=== PATIENT | male | born 1960 | race Asian ===

== ENCOUNTER 2022-10-24 08:34 | Outpatient (CLI) | payer BC, SELFPAY ==
[2022-10-24 19:48] LABS: Basophils Percent Auto 0.4 % (0.2-1.2); Eosinophils Absolute Auto 0.1 K/mm3 (0-0.3); Eosinophils Percent Auto 1.8 % (0-4.4); Hematocrit 37.2 % (42.0-52.0); Hemoglobin 11.8 g/dL (14.0-18.0); Immature Granulocyte Absolute 0.01 K/mm3 (0.00-0.031); Immature Granulocyte Percent A 0.2 % (0-0.5); Lymphocytes Absolute Auto 1.59 K/mm3 (0.9-3.2); Lymphocytes Percent Auto 35.6 % (18.3-44.2); Mean Corpuscular HGB Conc 31.7 g/dl (32-36); Mean Corpuscular Hemoglobin 32.3 pg (26-34); Mean Corpuscular Volume 101.9 fl (80-100); Monocytes Absolute Auto 0.4 K/mm3 (0.1-0.6); Monocytes Percent Auto 8.5 % (2.6-8.5); Neutrophils Absolute Auto 2.4 K/mm3 (1.3-6.7); Neutrophils Percent Auto 53.5 % (45.5-73.1); Platelet Count Result 249 k/mm3 (150-375); Red Blood Count 3.65 M/mm3 (4.6-6.20); Red Cell Distribution Width 13.9 % (11.5-14.5); White Blood Count 4.5 K/mm3 (4.5-10.0)
[2022-10-24 20:29] LABS: Alanine Aminotransferase 25 U/L (6-50); Alkaline Phosphatase 66 U/L (38-126); Anion Gap 7 mmol/L (8-16); Aspartate Amino Transferase 33 U/L (17-59); Bilirubin,Total 0.5 mg/dL (0.2-1.3); Blood Urea Nitrogen 14 mg/dL (9-20); Calcium 8.7 mg/dL (8.4-10.2); Carbon Dioxide 26 mmol/L (22-30); Chloride 104 mmol/L (98-107); Cholesterol 174 mg/dL (0-200); Estimated Glomerular Filt Rate > 60; Glucose 75 mg/dL (65-110); HDL Direct 47 mg/dL; Magnesium 2.4 mg/dL (1.6-2.3); Potassium 4.1 mmol/L (3.4-5.0); Sodium 137 mmol/L (137-145); Triglycerides 104 mg/dL (<150)
[2022-10-24 20:40] LABS: LDL Cholesterol Direct 84 mg/dL
[2022-10-24 20:58] LABS: Prostate Specific Antigen 5.4 ng/mL (< OR = 4.0)
== END 2022-10-24 08:35 | disposition home or self-care (01) ==
LOC: ANHGOSHLAB 08:37
PROVIDERS: PCP Internal Medicine; Visit Provider Family Medicine
DX: Z12.5 Encounter for screening for malignant neoplasm of prostate (principal); R53.83 Other fatigue; R25.2 Cramp and spasm; Z13.220 Encounter for screening for lipoid disorders; Z13.228 Encounter for screening for other metabolic disorders; Z12.11 Encounter for screening for malignant neoplasm of colon; Z12.12 Encounter for screening for malignant neoplasm of rectum
CPT/HCPCS: 36415; 80053; 80061; 83735; 84153; 85025; G0103

== ENCOUNTER 2023-11-09 08:32 | Outpatient (CLI) | payer BC, SELFPAY ==
[2023-11-09 12:57] LABS: Basophils Percent Auto 0.5 % (0.2-1.2); Eosinophils Absolute Auto 0.1 K/mm3 (0-0.3); Eosinophils Percent Auto 1.2 % (0-4.4); Hematocrit 39.4 % (42.0-52.0); Immature Granulocyte Absolute 0.01 K/mm3 (0.00-0.031); Immature Granulocyte Percent A 0.2 % (0-0.5); Lymphocytes Absolute Auto 1.38 K/mm3 (0.9-3.2); Lymphocytes Percent Auto 33.6 % (18.3-44.2); Mean Corpuscular Hemoglobin 34.2 pg (26-34); Mean Corpuscular Volume 103.7 fl (80-100); Mean Platelet Volume 9.2 fl (7.4-10.4); Monocytes Absolute Auto 0.3 K/mm3 (0.1-0.6); Monocytes Percent Auto 8.3 % (2.6-8.5); Neutrophils Absolute Auto 2.3 K/mm3 (1.3-6.7); Neutrophils Percent Auto 56.2 % (45.5-73.1); Platelet Count Result 248 k/mm3 (150-375); Red Cell Distribution Width 13.4 % (11.5-14.5); White Blood Count 4.1 K/mm3 (4.5-10.0)
[2023-11-09 14:27] LABS: Alanine Aminotransferase 20 U/L (6-50); Albumin Level 4.2 g/dL (3.5-5.1); Alkaline Phosphatase 62 U/L (38-126); Anion Gap 6 mmol/L (4-12); Aspartate Amino Transferase 42 U/L (17-59); Bilirubin,Total 0.6 mg/dL (0.2-1.3); Blood Urea Nitrogen 13 mg/dL (9-20); Carbon Dioxide 29 mmol/L (22-30); Chloride 102 mmol/L (98-107); Cholesterol 169 mg/dL (0-200); Estimated Glomerular Filt Rate > 60; Glucose 92 mg/dL (65-110); HDL Direct 51 mg/dL; Potassium 4.2 mmol/L (3.4-5.0); Sodium 137 mmol/L (137-145); Triglycerides 114 mg/dL (<150)
[2023-11-09 14:38] LABS: LDL Cholesterol Direct 74 mg/dL
[2023-11-09 15:26] LABS: Folic Acid 13.4 ng/mL (2.76->20)
== END 2023-11-09 08:33 | disposition home or self-care (01) ==
LOC: ANHGOSHLAB 08:33
PROVIDERS: PCP Family Medicine; Visit Provider Family Medicine
DX: D53.9 Nutritional anemia, unspecified (principal); R53.83 Other fatigue; Z13.228 Encounter for screening for other metabolic disorders; Z13.220 Encounter for screening for lipoid disorders
CPT/HCPCS: 36415; 80053; 80061; 82607; 82746; 85025

== ENCOUNTER 2024-12-30 07:55 | Outpatient (CLI) | payer BC, SELFPAY ==
--- OUTSIDE RECORDS SUMMARY | 2024-12-30 08:05 | XMS_ITS | Clinical Summary ---
Author Organization [facility] Address [address] [place] [address] Care Team Providers Care Equities Analyst Name Role Phone Tino Amador DO Primary Care Provider [phone] Allergies No known active allergies Medications omega 5-pch-piu-fish oil 300-1,000 mg capsuleIndicati ons:hypertrigly ceridemia Take 1 capsule by mouth every morning 07/22/2016 Active vitamins A,C,E-zinc-della er (ICAPS) 14,320-226-200 eccl-fk-leol capsuleIndicati ons:Vitamin Deficiency Take 2 capsules by mouth every morning Active glucosamine HCl/chondroitin kruse (GLUCOSAMINE-CH ONDROITIN ORAL)Indication s:supplement Take 2 capsules by mouth every morning Active Active Problems Problem Noted Date Diagnosed Date Macular hole, left 02/04/2021 Overview (09/25/2023): -S/p PPV/MP repair OS 2020 -Doing well, excellent VA Assessment & Plan (09/25/2023 2:05 PM CDT): Stable, monitor. Assessment & Plan (09/30/2021 10:27 AM CDT): Three months status post PPV/MS/Gas for MH/ERM to the left eye. Hole closed. Doing well. FU January Assessment & Plan (06/28/2021 11:30 AM CDT): Three months status post PPV/MS/Gas for MH/ERM to the left eye. Hole closed. Doing well. OCT shows closed mac hole with improving/resolving subfoveal irregularity. Recommend cont observation, see Dr. Cee. Assessment & Plan (04/15/2021 9:43 AM STRUCTURAL STEEL WORKER HELPER): One month status post PPV/MS/Gas for MH/ERM to the left eye. Doing well. Off eye drops OCT shows significant improvement in mac hole and it is closed with small subfoveal irregularity which may resolve over time. Recommend observation. Continue altitude precautions while gas still in eye. Assessment & Plan (03/17/2021 8:10 AM STRUCTURAL STEEL WORKER HELPER): One week status post PPV/MS/Gas for MH/ERM to the left eye. Doing well. Taper PF 3-2-1-0 q1w, stop tobramycin Return to clinic in one month. Signs and symptoms of retinal detachment, tears and endophthalmitis, elevated pressure reviewed with patient. Post Op Position: none required Altitude precautions were reviewed with patient. No strenuous activity x 1 more week Assessment & Plan (03/10/2021 9:09 AM STRUCTURAL STEEL WORKER HELPER): One day status post PPV/MS/Gas for MH/ERM to the left eye. Doing well. Shield operated eye, Tobramycin 4x/day and Predforte 4x/day Return to clinic in one week. Signs and symptoms of retinal detachment, tears and endophthalmitis, elevated pressure reviewed with patient. Post Op Position:Face Down. Altitude precautions were reviewed with patient. No strenuous activity. Assessment & Plan (02/04/2021 11:38 AM CDT): Now with MH OS - recommend PPV/MS/Gas Risks, benefits and alternatives for surgery include by not limited to infection, bleeding, damage to the eye, loss of vision, loss of the eye,deformity, diplopia, increased IOP, cataract, need for new refraction, RD, RT, gas injection, post op positioning, altitude precautions, silicone oil placement, need for additional surgery, inflammation to one or both eyes, no guarantees were made, and the guarded prognosis was discussed with the patient. Reviewed with them that is a teaching institution and that trainees, medical students, residents, fellows may be involved in their care and may be preforming parts of the procedure, however an attending doctor would be present to assure everything went as well as possible. After this discussion pt wants Dr. Nair to perform surgery, he is comfortable with learners observing and assisting during his surgery.They understand and wish to proceed. Status post YAG capsulotomy of right eye 019 Assessment & Plan (01/21/2021 9:43 AM CDT): Open capsule Epiretinal membrane (ERM) of both eyes 8 Assessment & Plan (09/25/2023 2:06 PM CDT): OD stable to previous, excellent VA and surgery not indicated. Ed pt, monitor in 1 year w/ DFE + OCT mac, sooner if changes to vision occur. Assessment & Plan (09/22/2022 5:07 PM CDT): Recommend observation OD, now s/p repair MH OS - doing well Stable Mac oct both eyes (OU) Fu 1 year Assessment & Plan (09/30/2021 11:27 AM CDT): Recommend observation OD, now s/p repair MH OS - doing well. Mrx dispensed FU in January Assessment & Plan (06/28/2021 11:30 AM CDT): Recommend observation OD, now s/p repair MH OS - doing well. Assessment & Plan (02/04/2021 11:34 AM CDT): Recommend observation OD, now with FTMH OS - consider PPV/MS/gas OS. Assessment & Plan (01/21/2021 9:42 AM CDT): Pt symptomatic for distortion left eye (OS). epiretinal membrane (ERM)/hole has worsened since Nair visit in 2016. Patient would like fu visit to discuss surgery left eye (OS). Assessment & Plan (12/31/2020 2:44 PM CDT): Stable right eye (OD), progression to full thickness hole left eye (OS) Fu retina Assessment & Plan (11/23/2017 3:33 PM CDT): Recommended observation with SRx for now. If visual acuity (VA) bothersome after getting new SRx, we can consider retina eval with Dr. Nair to discuss surgical options. Degenerative myopia of both eyes 11/16/2017 Assessment & Plan (09/25/2023 2:06 PM CDT): No h/t/d 360 today. Educated pt, reviewed s/s of RD/RT and to RTC should any occur. Otherwise, monitor w/ annual DFE. Assessment & Plan (12/31/2020 2:44 PM CDT): Stable vision right eye (OD) Warned the patient of signs and symptoms of retinal detachment and to return to clinic promptly if they occur. Assessment & Plan (11/16/2017 2:59 PM CDT): Oct next visit Pseudophakia of both eyes 10/12/2017 Assessment & Plan (09/25/2023 2:06 PM CDT): Stable- pt elects to use vision benefits at outside provider for MRx, monitor. Assessment & Plan (09/22/2022 5:07 PM CDT): Lenses centered and stable, monitor Assessment & Plan (09/30/2021 11:26 AM CDT): Lenses centered and stable, monitor Assessment & Plan (11/23/2017 3:33 PM CDT): Status post (s/p) phaco/IOL both eyes (OU) by Dr. Das. Continue pred forte taper as prescribed. Update SRx today. 1+ PCO right eye (OD). Will monitor for now. Assessment & Plan (11/16/2017 2:58 PM CDT): POW status post (s/p) EXTRACTION CATARACT - PHACOEMULSIFICATION AND LENS IMPLANT - Right 11/08/[address] Das Healing well. Oflox/ket through the weekend then stop. Taper pred forte 3-2-1. F/u x 3-6 wks for POV with MRx/DFE/Mac OCT. Assessment & Plan (11/09/2017 2:13 PM CDT): POM 1 status post (s/p) phaco/IOL. Some residual inflammation. Resume pred taper as prescribed. Assessment & Plan (10/25/2017 11:16 AM CDT): POW 2 status post (s/p) EXTRACTION CATARACT - PHACOEMULSIFICATION AND LENS IMPLANT - Left 10/11/[address] Das. Healing well. visual acuity (VA) improved. Okay to discontinue oflox/Ket. Continue Pred forte 4-3-2-1 taper. F/u x 3-5 weeks for final post op left eye (OS) with MRx and DFE. Discuss second eye next visit. Assessment & Plan (10/12/2017 1:05 PM CDT): Assessment: POD1 status post (s/p) phaco/iol EXTRACTION CATARACT - PHACOEMULSIFICATION AND LENS IMPLANT - Left 10/11/2017 by Thiago Plan: Post op instructions and precautions reviewed. Ofloxacin, Prednisolone Acetate 1%, Ketorolac four times per day. Shield for sleep. Call with any decrease in vision or increase in pain. Resolved Problems Problem Noted Date Diagnosed Date Resolved Date Left posterior capsular opacification 12/31/2020 09/25/2023 Assessment & Plan (12/31/2020 2:43 PM CDT): Visually significant, refer for yag cap Stressed visual potential is limited due to Erm and macular hole Pseudophakia of right eye 11/09/2017 Assessment & Plan (11/09/2017 12:57 PM CDT): Assessment: POD1 status post (s/p) phaco/iol EXTRACTION CATARACT - PHACOEMULSIFICATION AND LENS IMPLANT - Right 11/08/[address] Das Doing well. Plan: Post op instructions and precautions reviewed. Use Ofloxacin, Prednisolone acetate 1% and Ketorolac 0.5% to operative eye QID Shield for sleep. Call with any decrease in vision or increase in pain. Combined forms of age-relate d cataract of left eye 11/01/2017 11/16/2017 Overview (11/01/2017): Added automatically from request for surgery [id number] Combined forms of age-relate d cataract of right eye 09/08/2017 11/16/2017 Overview (09/08/2017): Added automatically from request for surgery [id number] Drusen of macula 07/22/2016 11/23/2017 Encounters Date Type Department Care Team Description 11/15/2024 Orders Only [facility] Medicine Ophthalmology [address] [facility] 6th [address], [address] [place] [facility] [place] [address] Nancy Bangura, OD Epiretinal membrane (ERM) of both eyes (Primary Dx) from Last 3 Months Immunizations Immunization Administration Dates Next Due Influenza, Quadrivalent, Spl it, Intramuscular 12/20/2018 Influenza, Trivalent, IM (MDV) 01/07/2021 Tdap 05/08/2018 ZOSTER Recombinant 03/31/2018,12/26/2017, 018 Surgical History Surgery Date Site/Laterality Comments COLONOSCOPY 04/03/2011 - 04/02/2012 CATARACT EXTRACTION 10/2017, 11/2017 Bilateral TOOTH EXTRACTION last one 01/2020 Medical History Medical History Date Comments Cataract Family History Medical History Relation Name Comments Anesthesia problems Neg Hx Clotting disorder Neg Hx Heart disease Neg Hx Malig Hypertension Neg Hx Malig Hyperthermia Neg Hx Pseudochol deficiency Neg Hx Stroke Neg Hx Social History Tobacco Use Types Packs/Day Years Used Date Smoking Tobacco: Never Smokeless Tobacco: Never Alcohol Use Standard Drinks/Week Comments Yes 2 (1 standard drink = 0.6 oz pur e alcohol) 1-2 drinks per week AUDIT-C Answer Date Recorded Q1: How often do you have a drink containing alc ohol? Monthly or less 03/04/2021 Q2: How many drinks containi ng alcohol do you have on a typical day when you are drinking? 1 or 2 03/04/2021 Q3: How often do you have si x or more drinks on one occasion? Never 03/04/2021 Sex and Gender Information Value Date Recorded Sex Assigned at Not on file Legal Sex Male 2:16 AM STRUCTURAL STEEL WORKER HELPER Gender Identity Male 06/22/2021 11:20 AM CDT Sexual Orientation Not on file Obstetrics History Last Filed Vital Signs Vital Sign Reading Time Taken Comments Blood Pressure 118/90 03/09/2021 12:50 PM STRUCTURAL STEEL WORKER HELPER Pulse 70 03/09/2021 1:00 PM STRUCTURAL STEEL WORKER HELPER Temperature 36 C (96.8 F) 03/09/2021 12:40 PM STRUCTURAL STEEL WORKER HELPER Respiratory Rate 14 03/09/2021 11:30 AM STRUCTURAL STEEL WORKER HELPER Oxygen Saturation 96% 03/09/2021 1:00 PM STRUCTURAL STEEL WORKER HELPER Inhaled Oxygen Concentration - - Weight 72.6 kg (160 lb) 03/04/2021 2:12 PM STRUCTURAL STEEL WORKER HELPER Height 175.3 cm (5' 9) 03/04/2021 2:12 PM STRUCTURAL STEEL WORKER HELPER Body Mass Index 23.63 03/04/2021 2:12 PM STRUCTURAL STEEL WORKER HELPER Plan of Treatment Health Maintenance Due Date Last Done Comments Colon Cancer Screening-Colonoscopy 1960 Depression Screening 1960 Hepatitis C Screening 1960 Prostate Cancer Screening-PSA 1958 Hepatitis B Screening 1976 Pneumococcal vaccine 65+ (1 of 1 - PCV) 2008 Fall Risk Assessment 03/09/2022 03/09/2021 Abdominal Aortic Aneurysm (A AA) Screen 12/02/2023 Well Visit 65+ 12/02/2023 Covid-19 Vaccine (2 - season) 2024 Influenza Vaccine (#1) 2024 01/07/2021, 2018 DTaP/Tdap/Td Vaccine (2 - Td or Tdap) 05/08/202808/2018 Zoster Vaccine Completed 03/31/2018, 12/03, 12/25/2017 Medical Devices Implanted Type Area Log Rider Device Identifier Shelf Expiration Date Model / Serial / Lot Intraocular Lens Implant Implanted:Qty: 1 on 10/11/2017 by Kevin Das MD at [facility] Lens Left: Eye [employer] 06/07/2022 [id number] / [id number] / Description:[id number] Sensar Acrylic Iol Implanted:Qty: 1 on 11/08/2017 by Kevin Das MD at [facility] Lens Right: Eye [employer] [id number] 09/05/2022 / [id number] / [place] [address] [facility] ACCESS CHOICE Advance Directives For more information, please contact: [phone] * Full Code (Latest Code Status on File) Date Activated Date Inactivated Comments 09/13/2017 7:45 AM 10/11/2017 8:22 AM * Full Code Date Activated Date Inactivated Comments 09/12/2017 4:52 PM 09/12/2017 6:52 PM Care Teams Equities Analyst Relationship Specialty Start Date End Date Tino Amador DO PCP - General Family Medicine 09/30/21
[2024-12-30 13:01] LABS: Hematocrit 38.3 % (42.0-52.0); Hemoglobin 12.3 g/dL (14.0-18.0); Immature Granulocyte Percent A 0.2 % (0-0.5); Lymphocytes Absolute Auto 1.61 K/mm3 (0.9-3.2); Mean Corpuscular HGB Conc 32.1 g/dl (32-36); Mean Corpuscular Hemoglobin 32.9 pg (26-34); Mean Corpuscular Volume 102.4 fl (80-100); Nucleated Red Blood Cells Absolute Auto 0.000 K/mm3 (0.0-0.012); Nucleated Red Blood Cells Perc 0.0 % (0.0-0.2); Platelet Count Result 231 k/mm3 (150-375); Red Blood Count 3.74 M/mm3 (4.6-6.20); White Blood Count 4.5 K/mm3 (4.5-10.0)
[2024-12-30 13:04] LABS: Alanine Aminotransferase 20 U/L (6-50); Albumin Level 4.1 g/dL (3.5-5.1); Alkaline Phosphatase 72 U/L (38-126); Anion Gap 5 mmol/L (4-12); Aspartate Amino Transferase 36 U/L (17-59); Bilirubin,Total 0.6 mg/dL (0.2-1.3); Blood Urea Nitrogen 13 mg/dL (9-20); Calcium 8.9 mg/dL (8.4-10.2); Carbon Dioxide 27 mmol/L (22-30); Chloride 103 mmol/L (98-107); Cholesterol 173 mg/dL (0-200); Estimated Glomerular Filt Rate > 60; Glucose 73 mg/dL (65-110); HDL Direct 50 mg/dL; Potassium 4.1 mmol/L (3.4-5.0); Sodium 135 mmol/L (137-145); Total Protein 7.2 g/dL (6.3-8.2); Triglycerides 87 mg/dL (<150)
[2024-12-30 13:43] LABS: Hemoglobin A1C 5.9 % (<5.7); Thyroid Stimulating Hormone Reflex 1.910 uIU/mL (0.465-4.68)
[2024-12-30 13:58] LABS: Vitamin B12 349.0 pg/mL (239-931)
== END 2024-12-30 07:56 | disposition home or self-care (01) ==
LOC: ANHGOSHLAB 07:56
PROVIDERS: PCP Family Medicine; Visit Provider Family Medicine
DX: Z00.00 Encounter for general adult medical examination without abnormal findings (principal); Z13.29 Encounter for screening for other suspected endocrine disorder; E53.8 Deficiency of other specified B group vitamins; E78.5 Hyperlipidemia, unspecified; R73.9 Hyperglycemia, unspecified; E55.9 Vitamin D deficiency, unspecified
CPT/HCPCS: 36415; 80053; 80061; 82306; 82607; 83036; 84443; 85025

== ENCOUNTER 2025-02-18 01:38 | Day surgery (SDC) | payer BC, SELFPAY ==
[2025-02-04 11:25] VITALS: BMI 23.6
--- OUTSIDE RECORDS SUMMARY | 2025-02-18 03:03 | XMS_ITS | Clinical Summary ---
Author Organization [facility] Address [address] [place] [address] Care Team Providers Care Soaking Tank Worker Name Role Phone Tino Amador DO Primary Care Provider [phone] Allergies No known active allergies Medications omega 1-gzl-jng-fish oil 300-1,000 mg capsuleIndicati ons:hypertrigly ceridemia Take 1 capsule by mouth every morning 07/22/2016 Active vitamins A,C,E-zinc-della er (ICAPS) 14,320-226-200 qurk-kk-jaxr capsuleIndicati ons:Vitamin Deficiency Take 2 capsules by [...] Cee. Assessment & Plan (04/15/2021 9:43 AM PHYSICS TECHNICIAN): One month status post PPV/MS/Gas for MH/ERM to the left eye. Doing well. Off eye drops OCT shows significant improvement in mac hole and it is closed with small subfoveal irregularity which may resolve over time. Recommend observation. Continue altitude precautions while gas still in eye. Assessment & Plan (03/17/2021 8:10 AM PHYSICS TECHNICIAN): One week status post PPV/MS/Gas for MH/ERM to the left eye. Doing well. Taper PF 3-2-1-0 q1w, stop tobramycin Return to clinic in one month. Signs and symptoms of retinal detachment, tears and endophthalmitis, elevated pressure reviewed with patient. Post Op Position: none required Altitude precautions were reviewed with patient. No strenuous activity x 1 more week Assessment & Plan (03/10/2021 9:09 AM PHYSICS TECHNICIAN): One day status post PPV/MS/Gas for MH/ERM [...] (11/01/2017): Added automatically from request for surgery [id number] Combined forms of age-relate d cataract of right eye 09/08/2017 11/16/2017 Overview (09/08/2017): Added automatically from request for surgery [id number] Drusen of macula 07/22/2016 11/23/2017 Immunizations Immunization Administration Dates Next Due Influenza, [...] on file Legal Sex Male 2:16 AM PHYSICS TECHNICIAN Gender Identity Male 06/22/2021 11:20 AM CDT Sexual Orientation Not on file Last Filed Vital Signs Vital Sign Reading Time Taken Comments Blood Pressure 118/90 03/09/2021 12:50 PM PHYSICS TECHNICIAN Pulse 70 03/09/2021 1:00 PM PHYSICS TECHNICIAN Temperature 36 C (96.8 F) 03/09/2021 12:40 PM PHYSICS TECHNICIAN Respiratory Rate 14 03/09/2021 11:30 AM PHYSICS TECHNICIAN Oxygen Saturation 96% 03/09/2021 1:00 PM PHYSICS TECHNICIAN Inhaled Oxygen Concentration - - Weight 72.6 kg (160 lb) 03/04/2021 2:12 PM PHYSICS TECHNICIAN Height 175.3 cm (5' 9) 03/04/2021 2:12 PM PHYSICS TECHNICIAN Body Mass Index 23.63 03/04/2021 2:12 PM PHYSICS TECHNICIAN Plan of Treatment Health Maintenance Due Date [...] 12/03, 12/25/2017 Medical Devices Implanted Type Area Fringe Maker Device Identifier Shelf Expiration Date Model / Serial / Lot Intraocular Lens Implant Implanted:Qty: 1 on 10/11/2017 by Kevin Das MD at [facility] Lens Left: Eye [employer] 06/07/2022 [id number] / [id number] / Description:[id number] Sensar Acrylic Iol Implanted:Qty: 1 on 11/08/2017 by Kevin Das MD at [facility] Lens Right: Eye [employer] [id number] 09/05/2022 / [id number] / N/A Insurance [facility] Advance Directives For more information, please contact: [phone] * Full Code (Latest Code Status on File) Date Activated Date Inactivated Comments 09/13/2017 7:45 AM 10/11/2017 8:22 AM * Full Code Date Activated Date Inactivated Comments 09/12/2017 4:52 PM 09/12/2017 6:52 PM Care Teams Soaking Tank Worker Relationship Specialty Start Date End Date Tino Amador DO PCP - General Family Medicine 09/30/21
[2025-02-18 12:35] VITALS: BP 132/74; PULSE 67; RESP 16; TEMP 36.3; O2SAT 100; BMI 23.7
[2025-02-18] MEDS: LACTATED RINGERS 1,000 ML 150 ML IV CONT (13:06)
--- NOTE | 2025-02-18 13:16 | P.PNAN_ITS ---
Anes - Initial Pre Proc Eval Procedure: Operation Date: 02/18/25 13:30 Proposed Procedures p Screening Colonoscopy - Bon Cee MD Date/Time: 02/18/25 13:16 Surgeon: Bon Cee MD Pre Op Diagnosis: Screening Patient Data Age: 64 Gender: M Height: 1.75 m Weight: 72.8 kg Last Vital Signs Temp 97.4 F L 02/18/25 12:35 Pulse 67 02/18/25 12:35 Resp 16 02/18/25 12:35 BP 132/74 02/18/25 12:35 Pulse Ox 100 02/18/25 12:35 O2 Del Method Room Air 02/18/25 12:35 Allergies Allergy/AdvReac Type Severity Reaction Status Date / Time No Known Allergies Allergy Verified 02/18/25 12:43 Home Medications ?Medication ?Instructions ?Recorded ?Confirmed ?Type No Home Medications 12/31/24 02/04/25 H istory Patient hx anesthesia problems: none Family hx anesthesia problems: none Results Review: All pre-operative results and documents have been reviewed as part of the pre- operative evaluation. [facility] Past Medical History Medical History Prediabetes Tinnitus of left ear Hearing loss in left ear Chronic neck pain History of cataract right and left Elevated PSA Surgical History Surgical History History of vitrectomy (~2020) left History of cataract surgery (~2018) Family History Family History Father Hypertension Social History Social History Smoking status: Never smoker Second hand tobacco smoke exposure: No Alcohol intake: current Substance use: never Substance use type: does not use Lack of Transportation: No Lack of Food: Never True Current Housing: I Have Housing Concerned About Future Housing: No Difficulty Paying Gas/Electric Bills: No Difficulty Paying for Meds: No Currently Unemployed: No Difficulty w/ Childcare or Family Care: No Living arrangements: alone Occupation/Education: occupation Gender identity (if verbalized by the patient): Male Spiritual care concerns: No Agree to blood products: Yes Anes - Eval Final PreProcedure Day of Procedure 02/18/25 13:16 Patient weight: normal Lungs: normal air movement Airway: Mallampati scale class II Neurological: alert and oriented Last oral intake: >/= 8 hours ASA classification: I Emergent: no Anesthetic plan: proceed Anesthesia type and monitoring: general GIVS and standard monitoring Results Review: All pre-operative results and documents have been reviewed as part of the pre- operative evaluation. Remote hx of migranes, overall good functional status, no cp or sob. Informed Consent: The patient's anesthetic plan and its attendant risks and benefits were discussed with the patient/family/POA. Questions were solicited and answers provided to the satisfaction of the patient/family/POA.
--- NOTE | 2025-02-18 13:17 | P.HP_ITS ---
History of Present Illness History of Present Illness Consent: Risks, benefits, and alternatives have been discussed and questions answered. Patient agrees to proceed with procedure. Chief complaint: Screening Narrative: Beverly Solorznao is a 64 year old male here for screening colonoscopy Review of Systems Review of Systems: All systems reviewed & are unremarkable except as noted in HPI and below PMFSH Past Medical History Medical History (Updated 02/18/25 @ 13:17 by Bon Cee MD) Colon cancer screening Prediabetes Tinnitus of left ear Hearing loss in left ear Chronic neck pain History of cataract right and left Elevated PSA Surgical History Surgical History History of vitrectomy (~2020) left History of cataract surgery (~2017) Family History Family History Father Hypertension Social History Social History Smoking status: Never smoker Second hand tobacco smoke exposure: No Alcohol intake: current Substance use: never Substance use type: does not use Lack of Transportation: No Lack of Food: Never True Current Housing: I Have Housing Concerned About Future Housing: No Difficulty Paying Gas/Electric Bills: No Difficulty Paying for Meds: No Currently Unemployed: No Difficulty w/ Childcare or Family Care: No Living arrangements: alone Occupation/Education: occupation Gender identity (if verbalized by the patient): Male Spiritual care concerns: No Agree to blood products: Yes Meds Home Medications and Allergies Home Medications ?Medication ?Instructions ?Recorded ?Confirmed ?Type No Home Medications 12/31/24 02/04/25 H istory Allergies Allergy/AdvReac Type Severity Reaction Status Date / Time No Known Allergies Allergy Verified 02/18/25 12:43 Vital Signs Vital Signs - 24 hr 02/18/25 12:35 Temperature 97.4 F L Pulse Rate 67 Respiratory Rate 16 Blood Pressure 132/74 Pulse Oximetry 100 Oxygen Delivery Room Air Exam Const: General: comfortable and no acute distress HENMT: Face/Nose/Sinus: Normal nares present Eyes: General: appearance normal, both eyes and all related structures Resp: Auscultation: clear to auscultation bilaterally Cardio: Rate: regular rate Rhythm: regular rhythm GI: Inspection: non-distended GI Palp: Yes Soft to palpation Skin: General skin exam: normal color Extrem: General: normal to inspection Psych: Mental Status: mental status grossly normal Assessment and Plan Assessment and plan (1) Colon cancer screening: Code(s): Z12.11 - Encounter for screening for malignant neoplasm of colon Status: Acute Assessment and Plan: colonoscopy
[2025-02-18 13:40] VITALS: BP 85/47; PULSE 62; RESP 13; O2SAT 99
[2025-02-18 13:50] VITALS: BP 99/61; PULSE 60; RESP 16; O2SAT 96
[2025-02-18 14:00] VITALS: BP 105/62; PULSE 66; RESP 14; O2SAT 99
== END 2025-02-18 16:01 | disposition home or self-care (01) ==
PROVIDERS: PCP Family Medicine; Referring Provider Family Medicine; Visit Provider Internal Medicine Gastroenterology
PROC: 0DJD8ZZ Inspection of Lower Intestinal Tract, Via Natural or Artificial Opening Endoscopic (ICD-10-PCS; CPT 45378; principal; 2025-02-18 13:30)
DX: Z12.11 Encounter for screening for malignant neoplasm of colon (principal); K64.8 Other hemorrhoids; R73.03 Prediabetes; G89.29 Other chronic pain; M54.2 Cervicalgia; Z98.890 Other specified postprocedural states
CPT/HCPCS: 45378; J2003; J2704; J7120